=== PATIENT | male | born 1950 | race Caucasian/White ===

== ENCOUNTER 2017-01-20 09:40 | Day surgery (SDC) | payer OTHER ==
--- NOTE | ~2017-01-20 | EGD ---
EGD REPORT [facility] [address] [place] [address] NAME: SEYMOUR NATARAJAN : 52 [place]US : [place] [facility] [place] [id number] AGE: 66 ADM/REG DATE : 01/20/17 MR#: [id number] REPORT SERV DATE: 01/20/17 DICTATED BY: SEYMOUR MARQUEZ DATE: 01/20/17 REPORT STATUS : Draft TRANSCRIBED BY: [employer] DATE: 01/20/17 [facility] Patient Name: Seymour Natarajan Date of : 1950 Attending MD: SEYMOUR MARQUEZ MD Procedure Date No Time: 01/20/2017 Procedure: Upper GI endoscopy Indications: Dysphagia Referring MD: ALBAN FITZGERALD MD Medicines: as per anesthesia Complications: No immediate complications. Procedure: Pre-Anesthesia Assessment: - ASA Grade Assessment: III - A patient with severe systemic disease. After obtaining informed consent, the endoscope was passed under direct vision. Throughout the procedure, the patient's blood pressure, pulse, and oxygen saturations were monitored continuously. The GIF [id number] was introduced through the mouth, and advanced to the third part of duodenum. The upper GI endoscopy was accomplished without difficulty. The patient tolerated the procedure. Findings: A mild Schatzki ring (acquired) was found at the gastroesophageal junction. The scope was withdrawn. Dilation was performed with a Dobson dilator with no resistance at 46 Fr. The entire examined stomach was normal. The cardia and gastric fundus were normal on retroflexion. The examined duodenum was normal. Impression: - Mild Schatzki ring. Dilated. - Normal stomach. - Normal examined duodenum. Recommendation: - Continue present medications. Procedure Code(s): --- Professional --- 57060, Esophagogastroduodenoscopy, flexible, transoral; diagnostic, including collection of specimen(s) by brushing or washing, when performed (separate procedure) 17569, Dilation of esophagus, by unguided sound or bougie, single or multiple passes Diagnosis Code(s): --- Professional --- EGD REPORT [place] [id number] [address] [id number] NAME: NATARAJANSEYMOUR PAU : 52 [place]US : [place] [facility] [place]#: [id number] AGE: 66 ADM/REG DATE : 01/20/17 MR#: [id number] REPORT SERV DATE: 01/20/17 DICTATED BY: SEYMOUR MARQUEZ. DATE: 01/20/17 REPORT STATUS : Draft TRANSCRIBED BY: [employer] DATE: 01/20/17 K22.2, Esophageal obstruction R13.10, Dysphagia, unspecified CPT copyright 2013 [employer]. All rights reserved. The codes documented in this report are preliminary and upon clinical courier review may be revised to meet current compliance requirements. SEYMOUR MARQUEZ MD 01/20/2017 1:10 PM This report has been signed electronically. Number of Addenda: 0 Note Initiated On: 01/20/2017 12:51 PM Scope Withdrawal Time 0 hours 0 minutes 0 seconds [address] [id number]
[~2017-01-20 09:40] MED LIST: B121000P SC; BENTYL20 PO; CENTRUM PO; CENTRUM TAB1 TAB PO; DIL4TAB PO; FEOSOL200 MG PO; FEROCON OR; FERROUS SULF325 M1 PO; IMODIUM ADV1 CHW PO; KCL20UDL PO; LOM PO; MAG IV; MAG PO; MULTIPLE VIT PO; NAUSEA MED; PAXIL; PHOSPHA 250 OR; PHOSPHA PO; PROBIOTIC PO; PROTEIN DRINK; Potassium PO/LIQ; VICODIN; VITAMIN B-121000 MC1 SL; VITAMIN C100 MG PO; VITAMIN D1000 UNI1 PO; VITC500 PO; [UNRECOGNIZED DRUG - CODE] IV; [UNRECOGNIZED DRUG - OTHER]; [UNRECOGNIZED DRUG - OTHER] IV; [UNRECOGNIZED DRUG - OTHER] PO
[2017-08-14] MEDS ORDERED: FOLIC ACID400 MC1 PO (13:38)
[2017-08-14] MEDS ORDERED: COZ50 PO (13:39)
== END 2017-01-20 23:59 | disposition home or self-care (01) ==
LOC: DMU 09:40
PROVIDERS: Internal Medicine Gastroenterology
PROC: 0DJ08ZZ Inspection of Upper Intestinal Tract, Via Natural or Artificial Opening Endoscopic (ICD-10-PCS; principal; 2017-01-20 11:00)
PROC: 0D747ZZ Dilation of Esophagogastric Junction, Via Natural or Artificial Opening (ICD-10-PCS; 2017-01-20 11:00)
DX: K22.2 Esophageal obstruction (principal); G89.29 Other chronic pain; M54.9 Dorsalgia, unspecified; Z95.828 Presence of other vascular implants and grafts; Z90.49 Acquired absence of other specified parts of digestive tract; Z79.899 Other long term (current) drug therapy